=== PATIENT | male | born 1990 | race Caucasian/White ===

== ENCOUNTER 2020-05-06 02:12 | Emergency (ER) | payer OTHER ==
[~2020-05-06] VITALS: Ht 170.2 cm; Wt 74.8 kg
[2020-05-06 03:12] LABS: ABSOLUTE EOSINOPHILS 0.2 thou/uL (0.0-0.7); ABSOLUTE LYMPHOCYTES 2.6 thou/uL (0.8-5.3); ABSOLUTE MONOCYTES 0.6 thou/uL (0.0-1.2); ABSOLUTE NEUTROPHILS 3.7 thou/uL (1.6-8.1); BASOPHILS 0.7 %; EOSINOPHILS 2.3 %; HEMATOCRIT 44.5 % (42.0-52.0); HEMOGLOBIN 15.9 gm/dL (14.0-18.0); LYMPHOCYTES 36.5 %; MCHC 35.7 g/dL (28.0-37.0); MCV 86.8 fL (80.0-100.0); MONOCYTES 8.2 %; MPV 7.2 fl. (7.2-11.1); NUCLEATED RBCS 0 /100WBC; PLATELET COUNT* 276 thou/uL (150-400); POLYS 52.3 %; RBC 5.13 mil/uL (4.50-6.00); RDW-CV 13.4 % (10.5-14.5); WBC 7.1 thou/uL (4.0-11.0)
[2020-05-06 03:22] LABS: CALCIUM 8.6 mg/dL (8.5-10.1); CREATININE 1.1 mg/dL (0.6-1.3); POTASSIUM 4.3 mmol/L (3.5-5.1)
[2020-05-06 03:23] LABS: PROTIME 10.7 Seconds (9.20-11.50)
[2020-05-06 03:26] LABS: ALBUMIN 3.6 g/dL (3.4-5.0); TOTAL BILIRUBIN 0.4 mg/dL (<0.1-1.0); TOTAL PROTEIN 7.4 g/dL (6.4-8.2)
[2020-05-06 04:21] VITALS: BP 130/75
--- NOTE | 2020-05-06 13:20 | EKG ---
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1990 Requested By: Kaci Zaman Order Number: [id number] Tila MD: Juan Alexis Measurements Intervals [place] Rate: 56 P: 105 NM: 180 QRS: -29 QRSD: 98 T: QT: 389 QTc: 376 Interpretive Statements Sinus bradycardia with sinus arrhythmia Borderline left axis deviation Nonspecific T abnormalities, lateral leads Lead(s) II were not used for morphology analysis No previous ECG available for comparison Electronically Signed On 05-06-2020 13:19:57 CDT by Juan Alexis [email or web address] <ELECTRONICALLY SIGNED> By: Juan Alexis MD, [facility] 05/06/20 1319 Juan Alexis MD, [facility] /EPI
== END 2020-05-06 04:21 | disposition home or self-care (01) ==
LOC: M.ERS 02:12
PROVIDERS: Emergency Medicine
DX: R07.89 Other chest pain (principal)

== ENCOUNTER → 2020-07-17 | Outpatient (CLI) | payer OTHER | LOC: M.RAD 10:12 | PROVIDERS: ATTEND Orthopaedic Surgery | DX: M13.80 Other specified arthritis, unspecified site (principal); M54.5 Low back pain; M25.521 Pain in right elbow; M25.522 Pain in left elbow; M25.561 Pain in right knee; M25.562 Pain in left knee; M25.511 Pain in right shoulder; M25.512 Pain in left shoulder ==

== ENCOUNTER 2020-09-21 11:45 | Emergency (ER) | payer OTHER ==
[~2020-09-21] VITALS: Ht 170.2 cm; Wt 74.8 kg
[2020-09-21] MEDS ORDERED: NORCO 5-325 TA1 EAC2 PO (12:20)
[2020-09-21] MEDS ORDERED: PREDNISONE 20 M20 M1 PO (12:20)
[2020-09-21 12:30] VITALS: BP 134/92
--- NOTE | 2020-09-21 16:59 | EKG ---
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: [place] : 1990 Requested By: Jarrett Tovar Order Number: [id number] MD: Liu Kent Measurements Intervals [place] Rate: 61 P: 49 [place]: 168 QRS: 18 QRSD: 94 T: 55 QT: 379 QTc: 382 Interpretive Statements Sinus rhythm Probable left atrial enlargement Compared to ECG 05/06/2020 02:18:50 Sinus bradycardia no longer present Sinus arrhythmia no longer present T-wave abnormality no longer present Electronically Signed On 09-21-2020 16:59:17 DISTRIBUTION TECHNICIAN by Liu Kent [email or web address] <ELECTRONICALLY SIGNED> By: Liu Kent MD, FAC 09/21/20 1659 1149 1149 Liu Kent MD, [facility] /EPI
== END 2020-09-21 12:30 | disposition home or self-care (01) ==
LOC: M.ERS 11:45
DX: R07.89 Other chest pain (principal)